=== PATIENT | female | born 2000 | race Caucasian/White ===

== ENCOUNTER 2018-10-11 18:34 | Inpatient (IN) | payer OTHER ==
[~2018-10-11] VITALS: Ht 162.6 cm; Wt 68.0 kg
[~2018-10-11 18:34] MED LIST: DIPHENHIST50 MG PO; EPIPEN 2-P0.3 MG/0.3 IM; MONTELUKAST SOD10 MG PO; PREDNISONE 20 M20 MG PO; PREDNISONE50 MG PO; RESCUE INHALER INH; VENTOLIN HFA 1818 GM INH
[2018-10-11 18:35] VITALS: BP 129/85
[2018-10-11 21:28] LABS: ABSOLUTE NEUTROPHILS 5.7 thou/uL (1.4-8.2); BASOPHILS 0.6 % (0.0-2.0); EOSINOPHILS 0.3 % (0.0-3.0); HEMATOCRIT 41.9 % (37.0-47.0); HEMOGLOBIN 14.5 gm/dL (12.0-15.0); LYMPHOCYTES 28.5 % (24.0-44.0); MCH 29.2 pg (26.0-34.0); MCHC 34.6 g/dL (28.0-37.0); MCV 84.5 fL (80.0-100.0); PLATELET COUNT 186 thou/uL (150-400); POLYS 60.6 % (36.0-66.0); RBC 4.96 mil/uL (4.20-5.00); RDW 13.7 % (10.5-14.5); WBC 9.4 thou/uL (4.0-11.0)
[2018-10-11 21:37] LABS: CALCIUM 9.4 mg/dL (8.5-10.1); CREATININE 0.7 mg/dL (0.6-1.0); POTASSIUM 3.3 mmol/L (3.5-5.1)
[2018-10-11] MEDS ORDERED: PREDNISONE 20 M20 MG PO (22:47)
[2018-10-11] MEDS ORDERED: VENTOLIN HFA 1818 GM INH (22:47)
[2018-10-12] VITALS (7 sets, daily range): BP systolic 114–132; BP diastolic 64–80
--- NOTE | 2018-10-12 03:03 | NUR ---
PT ARRIVED FROM ED PT ORIENTATED ON TO ROOM AND CALL LIGHT PT USED CALL LIGHT EFFECTIVELY NO ISSUES OVERNIGHT.
[2018-10-12 04:09] LABS: CALCIUM 8.5 mg/dL (8.5-10.1); CREATININE 0.8 mg/dL (0.6-1.0); POTASSIUM 4.1 mmol/L (3.5-5.1)
--- NOTE | 2018-10-12 14:45 | NUR ---
A/OX4, C/O HEADACHE PAIN THAT RESOLVES WITH MEDICATIONS, SINUS TACH ON TELE, HR WILL ELEVATE TO UPPER 140'S WHEN UP TO BATHROOM OR COUGHING. ON BREATHING TREATMENTS AND STEROID TREATMENTS FOR ASTHMA. ANTI-VIRAL FOR INFLUENZA. UP AB LEONIE, ISOLATION FOR INFLUENZA, ABL TO MAKE HER NEEDS KNOWN. SEEN BY DR MICHELLE TODAY WITH NO PLANS TO DC TODAY. CALL LIGHT IN REACH CONTINUE TO MONITOR.
--- NOTE | 2018-10-13 01:28 | NUR ---
PT 02 SAT 89 AND TACHY 130'S AFTER GOING TO BATHROOM PT PUT ON PRN O2 2L PT TAKEN OFF WHEN AT REST PT GIVEN COUGH MEDICINE DURING THE NIGHT PT USED CALL LIGHT EFFECTIVELY.
[2018-10-13 04:15] VITALS: BP 116/79
[2018-10-13 05:48] LABS: HEMOGLOBIN 12.5 gm/dL (12.0-15.0); MCH 28.9 pg (26.0-34.0); MCHC 33.8 g/dL (28.0-37.0); MCV 85.4 fL (80.0-100.0); RBC 4.33 mil/uL (4.20-5.00); RDW 13.8 % (10.5-14.5); WBC 8.7 thou/uL (4.0-11.0)
[2018-10-13 06:06] LABS: CALCIUM 8.4 mg/dL (8.5-10.1); CREATININE 0.6 mg/dL (0.6-1.0); POTASSIUM 3.5 mmol/L (3.5-5.1)
[2018-10-13 07:06] VITALS: BP 119/84
[2018-10-13 13:50] VITALS: BP 119/83
--- NOTE | 2018-10-13 15:31 | NUR ---
SINUS TACH IN THE MID TO UPPER 120'S, PLACED ON 1.5L NC. NEW ORDERS FOR MUSINEX. PT VOICED SHE COUGH IS MORE PRODUCTIVE. ORDERS FOR IVP WITH RT. DENIES HEADACHE, VSS, UP AB LEONIE TO BATHROOM. ABLE TO MAKE NEEDS KNOWN.
[2018-10-13 20:02] VITALS: BP 119/78
[2018-10-14 04:54] VITALS: BP 123/78
[2018-10-14 07:36] VITALS: BP 127/87
--- NOTE | 2018-10-14 07:50 | NUR ---
progress pt up ad mia, ivf's infusing as ordered, denies pain. voiding qs. continue poc.
[2018-10-14 15:03] VITALS: BP 120/77
[2018-10-14 19:48] VITALS: BP 131/82
--- NOTE | 2018-10-15 05:06 | NUR ---
Pt. rested quietly at intervals during the night when checked on during frequent rounds. She offers no c/o shortness of air. Has a non-productive congested cough.
[2018-10-15 05:26] VITALS: BP 126/85
[2018-10-15 08:14] VITALS: BP 126/86
[2018-10-15] MEDS ORDERED: OSELB75 PO (12:23)
[2018-10-15] MEDS ORDERED: PREDNISONE 10 M10 MG PO (12:33)
[2018-10-15] MEDS ORDERED: SYMBICORT160 MCG/4. INH (12:45)
[2018-10-15 13:24] VITALS: BP 126/86
--- NOTE | 2018-10-15 13:57 | NUR ---
PT STABLE THROUGHOUT SHIFT. PT AMBULATED AROUND UNIT AND MAINTAINED 92-94% O2 SAT. NO C/O SOA, DIZZINESS OR RAPID HR. PT DISCHARGED HOME. PT LEFT UNIT TOMMY WHEELCHAIR TO PRIVATE VEHICLE.
== END 2018-10-15 13:00 | disposition home or self-care (01) | DRG 193 ==
LOC: ER 18:34 → 4W 23:40 → EROBS 23:40 → 4W 10-12 00:41 → ENTRNSPT 10-15 13:34 → EDTRNSPTSTS 10-15 13:37
PROVIDERS: Nurse Practitioner Family; Physician Assistant; ADMIT Hospitalist
DX: J10.1 Influenza due to other identified influenza virus with other respiratory manifestations (principal); J96.01 Acute respiratory failure with hypoxia; J45.901 Unspecified asthma with (acute) exacerbation; R00.0 Tachycardia, unspecified; F12.90 Cannabis use, unspecified, uncomplicated; Z91.011 Allergy to milk products; Z91.048 Other nonmedicinal substance allergy status; Z87.891 Personal history of nicotine dependence; Z79.899 Other long term (current) drug therapy
CPT/HCPCS: 10045